=== PATIENT | male | born 1945 | race Caucasian/White ===

== ENCOUNTER 2016-05-01 10:57 | Outpatient (CLI) | payer MEDICARE, BC ==
[~2016-05-01 10:57] MED LIST: ACET325T53 PO; ATOR10TA PO; BLOO-129 IN; GABA300C PO; HYDR-3326 PO; Metformin Hcl PO; Nortriptyline Hcl PO; OXYC1TAB PO; TOBR2.5D EACHEYE; Valsartan PO; Zolpidem Tartrate PO; [UNRECOGNIZED DRUG - CODE] PO
== END 2016-05-01 23:59 | disposition home or self-care (01) ==
LOC: WOU 10:57
PROVIDERS: ATTEND Podiatrist Foot & Ankle Surgery
DX: E11.621 Type 2 diabetes mellitus with foot ulcer (principal); E11.42 Type 2 diabetes mellitus with diabetic polyneuropathy; L97.521 Non-pressure chronic ulcer of other part of left foot limited to breakdown of skin
CPT/HCPCS: A6402; G0463

== ENCOUNTER 2016-05-12 09:40 | Outpatient (CLI) | payer MEDICARE, BC | END 2016-05-12 23:59 | disposition home or self-care (01) | LOC: WOU 09:40 | PROVIDERS: ATTEND Podiatrist Foot & Ankle Surgery | DX: T87.81 Dehiscence of amputation stump (principal); E11.621 Type 2 diabetes mellitus with foot ulcer; L97.521 Non-pressure chronic ulcer of other part of left foot limited to breakdown of skin; E11.42 Type 2 diabetes mellitus with diabetic polyneuropathy; T86.821 Skin graft (allograft) (autograft) failure; Z91.19 Patient's noncompliance with other medical treatment and regimen; Z83.3 Family history of diabetes mellitus; Z89.422 Acquired absence of other left toe(s); Z79.84 Long term (current) use of oral hypoglycemic drugs | CPT/HCPCS: 11042; A6402 ==

== ENCOUNTER 2016-05-19 12:53 | Outpatient (CLI) | payer MEDICARE, BC ==
[~2016-05-19 12:53] MED LIST changes: +OXYC-128 PO; -OXYC1TAB PO
== END 2016-05-19 23:59 | disposition home or self-care (01) ==
LOC: WOU 12:53
PROVIDERS: ATTEND Podiatrist Foot & Ankle Surgery
DX: T87.81 Dehiscence of amputation stump (principal); Z89.422 Acquired absence of other left toe(s); E11.621 Type 2 diabetes mellitus with foot ulcer; L97.521 Non-pressure chronic ulcer of other part of left foot limited to breakdown of skin; E11.42 Type 2 diabetes mellitus with diabetic polyneuropathy; Z79.84 Long term (current) use of oral hypoglycemic drugs
CPT/HCPCS: 11042; A6402

== ENCOUNTER 2016-05-29 11:45 | Outpatient (CLI) | payer MEDICARE, BC | END 2016-05-29 23:59 | disposition home or self-care (01) | LOC: WOU 11:45 | PROVIDERS: ATTEND Podiatrist Foot & Ankle Surgery | DX: Z48.817 Encounter for surgical aftercare following surgery on the skin and subcutaneous tissue (principal); E11.621 Type 2 diabetes mellitus with foot ulcer; L97.521 Non-pressure chronic ulcer of other part of left foot limited to breakdown of skin; E11.42 Type 2 diabetes mellitus with diabetic polyneuropathy; Z89.422 Acquired absence of other left toe(s); T87.81 Dehiscence of amputation stump; Z79.84 Long term (current) use of oral hypoglycemic drugs | CPT/HCPCS: 11042; A6402 ==

== ENCOUNTER 2016-06-02 09:33 | Outpatient (CLI) | payer MEDICARE, BC | END 2016-06-02 23:59 | disposition home or self-care (01) | LOC: WOU 09:33 | PROVIDERS: ATTEND Podiatrist Foot & Ankle Surgery | DX: T87.81 Dehiscence of amputation stump (principal); E11.621 Type 2 diabetes mellitus with foot ulcer; L97.521 Non-pressure chronic ulcer of other part of left foot limited to breakdown of skin; E11.42 Type 2 diabetes mellitus with diabetic polyneuropathy; Z89.422 Acquired absence of other left toe(s); T86.821 Skin graft (allograft) (autograft) failure; Z91.19 Patient's noncompliance with other medical treatment and regimen; Z83.3 Family history of diabetes mellitus; Z79.84 Long term (current) use of oral hypoglycemic drugs | CPT/HCPCS: 11042; A6402 ==

== ENCOUNTER 2016-06-09 10:42 | Outpatient (CLI) | payer MEDICARE, BC | END 2016-06-09 23:59 | disposition home or self-care (01) | LOC: WOU 10:42 | PROVIDERS: ATTEND Podiatrist Foot & Ankle Surgery | DX: T87.81 Dehiscence of amputation stump (principal); E11.621 Type 2 diabetes mellitus with foot ulcer; L97.521 Non-pressure chronic ulcer of other part of left foot limited to breakdown of skin; E11.42 Type 2 diabetes mellitus with diabetic polyneuropathy; Z89.422 Acquired absence of other left toe(s); Z91.19 Patient's noncompliance with other medical treatment and regimen; Z83.3 Family history of diabetes mellitus; Z80.9 Family history of malignant neoplasm, unspecified; T86.821 Skin graft (allograft) (autograft) failure; Z79.84 Long term (current) use of oral hypoglycemic drugs | CPT/HCPCS: 11042; 88305; 88312; A6402 ×2 ==

== ENCOUNTER 2016-06-16 09:05 | Outpatient (CLI) | payer MEDICARE, BC | END 2016-06-16 23:59 | disposition home or self-care (01) | LOC: WOU 09:05 | PROVIDERS: ATTEND Podiatrist Foot & Ankle Surgery | DX: E11.621 Type 2 diabetes mellitus with foot ulcer (principal); L97.521 Non-pressure chronic ulcer of other part of left foot limited to breakdown of skin; E11.42 Type 2 diabetes mellitus with diabetic polyneuropathy; Z89.422 Acquired absence of other left toe(s); T87.81 Dehiscence of amputation stump; S80.811D Abrasion, right lower leg, subsequent encounter; X58.XXXD Exposure to other specified factors, subsequent encounter; Z91.19 Patient's noncompliance with other medical treatment and regimen | CPT/HCPCS: 11042; A6402 ==

== ENCOUNTER 2016-06-23 11:22 | Outpatient (CLI) | payer MEDICARE, BC | END 2016-06-23 23:59 | disposition home or self-care (01) | LOC: WOU 11:22 | PROVIDERS: ATTEND Podiatrist Foot & Ankle Surgery | DX: T87.81 Dehiscence of amputation stump (principal); T86.821 Skin graft (allograft) (autograft) failure; E11.621 Type 2 diabetes mellitus with foot ulcer; L97.521 Non-pressure chronic ulcer of other part of left foot limited to breakdown of skin; E11.42 Type 2 diabetes mellitus with diabetic polyneuropathy; Z89.422 Acquired absence of other left toe(s); S80.811D Abrasion, right lower leg, subsequent encounter; X58.XXXD Exposure to other specified factors, subsequent encounter; Z79.84 Long term (current) use of oral hypoglycemic drugs | CPT/HCPCS: 11042; A6197; A6253; A6402 ×2; A6452 ==

== ENCOUNTER 2016-06-26 11:09 | Outpatient (CLI) | payer MEDICARE, BC | END 2016-06-26 23:59 | disposition home or self-care (01) | LOC: WOU 11:09 | PROVIDERS: ATTEND Podiatrist Foot & Ankle Surgery | DX: T87.81 Dehiscence of amputation stump (principal); E11.621 Type 2 diabetes mellitus with foot ulcer; L97.521 Non-pressure chronic ulcer of other part of left foot limited to breakdown of skin; E11.42 Type 2 diabetes mellitus with diabetic polyneuropathy; S80.811D Abrasion, right lower leg, subsequent encounter; X58.XXXD Exposure to other specified factors, subsequent encounter; Z91.19 Patient's noncompliance with other medical treatment and regimen; Z89.422 Acquired absence of other left toe(s) | CPT/HCPCS: 11042; A6197; A6402 ==

== ENCOUNTER 2016-07-04 10:27 | Outpatient (CLI) | payer MEDICARE, BC | END 2016-07-04 23:59 | disposition home or self-care (01) | LOC: WOU 10:27 | PROVIDERS: ATTEND Podiatrist Foot & Ankle Surgery | DX: T87.81 Dehiscence of amputation stump (principal); E11.621 Type 2 diabetes mellitus with foot ulcer; L97.523 Non-pressure chronic ulcer of other part of left foot with necrosis of muscle; E11.42 Type 2 diabetes mellitus with diabetic polyneuropathy; Z89.422 Acquired absence of other left toe(s); T86.821 Skin graft (allograft) (autograft) failure | CPT/HCPCS: 11043; 87070-TC; 97605-TC; A6402 ==

== ENCOUNTER 2016-07-07 09:25 | Outpatient (CLI) | payer MEDICARE, BC | END 2016-07-07 23:59 | disposition home health service (06) | LOC: WOU 09:25 | PROVIDERS: ATTEND Podiatrist Foot & Ankle Surgery | DX: T87.81 Dehiscence of amputation stump (principal); T86.821 Skin graft (allograft) (autograft) failure; E11.621 Type 2 diabetes mellitus with foot ulcer; L97.523 Non-pressure chronic ulcer of other part of left foot with necrosis of muscle; E11.42 Type 2 diabetes mellitus with diabetic polyneuropathy; Z91.19 Patient's noncompliance with other medical treatment and regimen; Z79.84 Long term (current) use of oral hypoglycemic drugs | CPT/HCPCS: 11043; A6402 ==

== ENCOUNTER 2016-07-10 09:50 | Outpatient (CLI) | payer MEDICARE, BC | END 2016-07-10 23:59 | disposition home health service (06) | LOC: WOU 09:50 | PROVIDERS: ATTEND Podiatrist Foot & Ankle Surgery | DX: T87.81 Dehiscence of amputation stump (principal); E11.621 Type 2 diabetes mellitus with foot ulcer; E11.42 Type 2 diabetes mellitus with diabetic polyneuropathy; Z89.432 Acquired absence of left foot; Z79.84 Long term (current) use of oral hypoglycemic drugs; Z91.19 Patient's noncompliance with other medical treatment and regimen; B35.1 Tinea unguium; L97.522 Non-pressure chronic ulcer of other part of left foot with fat layer exposed | CPT/HCPCS: 11042; A6402 ==

== ENCOUNTER 2016-07-17 10:20 | Outpatient (CLI) | payer MEDICARE, BC | END 2016-07-17 23:59 | disposition home health service (06) | LOC: WOU 10:20 | PROVIDERS: ATTEND Podiatrist Foot & Ankle Surgery | DX: T87.81 Dehiscence of amputation stump (principal); E11.621 Type 2 diabetes mellitus with foot ulcer; L97.523 Non-pressure chronic ulcer of other part of left foot with necrosis of muscle; E11.42 Type 2 diabetes mellitus with diabetic polyneuropathy; Z89.422 Acquired absence of other left toe(s); Z83.3 Family history of diabetes mellitus; Z80.9 Family history of malignant neoplasm, unspecified | CPT/HCPCS: 11042; A6402 ==

== ENCOUNTER 2016-07-28 10:29 | Outpatient (CLI) | payer MEDICARE, BC | END 2016-07-28 23:59 | disposition home health service (06) | LOC: WOU 10:29 | PROVIDERS: ATTEND Podiatrist Foot & Ankle Surgery | DX: E11.621 Type 2 diabetes mellitus with foot ulcer (principal); L97.522 Non-pressure chronic ulcer of other part of left foot with fat layer exposed; E11.42 Type 2 diabetes mellitus with diabetic polyneuropathy; T87.81 Dehiscence of amputation stump; Z89.422 Acquired absence of other left toe(s); Z91.19 Patient's noncompliance with other medical treatment and regimen | CPT/HCPCS: 11042; A6402 ×2 ==

== ENCOUNTER 2016-08-04 14:00 | Outpatient (CLI) | payer MEDICARE, BC | END 2016-08-04 23:59 | disposition home health service (06) | LOC: WOU 14:00 | PROVIDERS: ATTEND Podiatrist Foot & Ankle Surgery | DX: T87.81 Dehiscence of amputation stump (principal); Z89.422 Acquired absence of other left toe(s); T86.821 Skin graft (allograft) (autograft) failure; E11.621 Type 2 diabetes mellitus with foot ulcer; L97.522 Non-pressure chronic ulcer of other part of left foot with fat layer exposed; E11.42 Type 2 diabetes mellitus with diabetic polyneuropathy; Z91.19 Patient's noncompliance with other medical treatment and regimen; Z79.84 Long term (current) use of oral hypoglycemic drugs | CPT/HCPCS: 11042; A6402 ==

== ENCOUNTER 2016-08-07 09:31 | Outpatient (CLI) | payer MEDICARE, BC | END 2016-08-07 23:59 | disposition home health service (06) | LOC: WOU 09:31 | PROVIDERS: ATTEND Podiatrist Foot & Ankle Surgery | DX: E11.621 Type 2 diabetes mellitus with foot ulcer (principal); L97.522 Non-pressure chronic ulcer of other part of left foot with fat layer exposed; T87.81 Dehiscence of amputation stump; T86.821 Skin graft (allograft) (autograft) failure; Z89.422 Acquired absence of other left toe(s); E11.42 Type 2 diabetes mellitus with diabetic polyneuropathy; Z91.19 Patient's noncompliance with other medical treatment and regimen | CPT/HCPCS: 11042; A6402 ==

== ENCOUNTER 2016-08-14 09:38 | Outpatient (CLI) | payer MEDICARE, BC | END 2016-08-14 23:59 | disposition home health service (06) | LOC: WOU 09:38 | PROVIDERS: ATTEND Podiatrist Foot & Ankle Surgery | DX: T87.81 Dehiscence of amputation stump (principal); Z89.422 Acquired absence of other left toe(s); E11.621 Type 2 diabetes mellitus with foot ulcer; E11.42 Type 2 diabetes mellitus with diabetic polyneuropathy; Z91.19 Patient's noncompliance with other medical treatment and regimen; T86.821 Skin graft (allograft) (autograft) failure; Z83.3 Family history of diabetes mellitus; Z79.84 Long term (current) use of oral hypoglycemic drugs | CPT/HCPCS: 11042; 82962-TC; A6402 ==

== ENCOUNTER 2016-08-21 09:59 | Outpatient (CLI) | payer MEDICARE, BC | END 2016-08-21 23:59 | disposition home health service (06) | LOC: WOU 09:59 | PROVIDERS: ATTEND Podiatrist Foot & Ankle Surgery | DX: E11.621 Type 2 diabetes mellitus with foot ulcer (principal); L97.521 Non-pressure chronic ulcer of other part of left foot limited to breakdown of skin; T87.81 Dehiscence of amputation stump; T86.821 Skin graft (allograft) (autograft) failure; E11.42 Type 2 diabetes mellitus with diabetic polyneuropathy; Z89.422 Acquired absence of other left toe(s); Z79.84 Long term (current) use of oral hypoglycemic drugs | CPT/HCPCS: 11042; 82962; A6402 ==

== ENCOUNTER 2016-08-28 13:10 | Outpatient (CLI) | payer MEDICARE, BC | END 2016-08-28 23:59 | disposition home health service (06) | LOC: WOU 13:10 | PROVIDERS: ATTEND Podiatrist Foot & Ankle Surgery | DX: E11.621 Type 2 diabetes mellitus with foot ulcer (principal); L97.521 Non-pressure chronic ulcer of other part of left foot limited to breakdown of skin; T87.81 Dehiscence of amputation stump; Z89.422 Acquired absence of other left toe(s); E11.42 Type 2 diabetes mellitus with diabetic polyneuropathy; E66.3 Overweight; Z68.28 Body mass index [BMI] 28.0-28.9, adult | CPT/HCPCS: 11042; A6402 ==

== ENCOUNTER 2016-09-15 10:00 | Outpatient (CLI) | payer MEDICARE, BC | END 2016-09-15 23:59 | disposition home health service (06) | LOC: WOU 10:00 | PROVIDERS: ATTEND Podiatrist Foot & Ankle Surgery | DX: T87.81 Dehiscence of amputation stump (principal); E11.621 Type 2 diabetes mellitus with foot ulcer; L97.521 Non-pressure chronic ulcer of other part of left foot limited to breakdown of skin; Z89.422 Acquired absence of other left toe(s); T86.821 Skin graft (allograft) (autograft) failure; Z91.19 Patient's noncompliance with other medical treatment and regimen; Z79.84 Long term (current) use of oral hypoglycemic drugs | CPT/HCPCS: 11042; A6402 ==

== ENCOUNTER 2016-09-29 09:49 | Outpatient (CLI) | payer MEDICARE, BC | END 2016-09-29 23:59 | disposition home health service (06) | LOC: WOU 09:49 | PROVIDERS: ATTEND Podiatrist Foot & Ankle Surgery | DX: T86.821 Skin graft (allograft) (autograft) failure (principal); T87.81 Dehiscence of amputation stump; E11.621 Type 2 diabetes mellitus with foot ulcer; L97.521 Non-pressure chronic ulcer of other part of left foot limited to breakdown of skin; Z89.422 Acquired absence of other left toe(s); E11.42 Type 2 diabetes mellitus with diabetic polyneuropathy; Z79.84 Long term (current) use of oral hypoglycemic drugs; E66.3 Overweight; Z68.28 Body mass index [BMI] 28.0-28.9, adult; Z91.19 Patient's noncompliance with other medical treatment and regimen | CPT/HCPCS: 11042; A6402 ==

== ENCOUNTER 2016-10-09 10:15 | Outpatient (CLI) | payer MEDICARE, BC | END 2016-10-09 23:59 | disposition home health service (06) | LOC: WOU 10:15 | PROVIDERS: ATTEND Podiatrist Foot & Ankle Surgery | DX: T87.81 Dehiscence of amputation stump (principal); T86.821 Skin graft (allograft) (autograft) failure; E11.621 Type 2 diabetes mellitus with foot ulcer; L97.521 Non-pressure chronic ulcer of other part of left foot limited to breakdown of skin; Z89.422 Acquired absence of other left toe(s); E11.42 Type 2 diabetes mellitus with diabetic polyneuropathy; Z91.19 Patient's noncompliance with other medical treatment and regimen; Z79.84 Long term (current) use of oral hypoglycemic drugs | CPT/HCPCS: 11042; A6402 ==

== ENCOUNTER 2016-10-23 10:06 | Outpatient (CLI) | payer MEDICARE, BC | END 2016-10-23 23:59 | disposition home health service (06) | LOC: WOU 10:06 | PROVIDERS: ATTEND Podiatrist Foot & Ankle Surgery | DX: T87.81 Dehiscence of amputation stump (principal); E11.621 Type 2 diabetes mellitus with foot ulcer; L97.521 Non-pressure chronic ulcer of other part of left foot limited to breakdown of skin; Z89.422 Acquired absence of other left toe(s); E11.42 Type 2 diabetes mellitus with diabetic polyneuropathy; Z91.19 Patient's noncompliance with other medical treatment and regimen; T86.821 Skin graft (allograft) (autograft) failure | CPT/HCPCS: 11042; A6402 ==

== ENCOUNTER 2016-11-10 10:26 | Outpatient (CLI) | payer MEDICARE, BC | END 2016-11-10 23:59 | disposition home health service (06) | LOC: WOU 10:26 | PROVIDERS: ATTEND Podiatrist Foot & Ankle Surgery | DX: T87.81 Dehiscence of amputation stump (principal); E11.621 Type 2 diabetes mellitus with foot ulcer; L97.521 Non-pressure chronic ulcer of other part of left foot limited to breakdown of skin; E11.42 Type 2 diabetes mellitus with diabetic polyneuropathy; T86.821 Skin graft (allograft) (autograft) failure; Z89.422 Acquired absence of other left toe(s); Z83.3 Family history of diabetes mellitus; Z79.84 Long term (current) use of oral hypoglycemic drugs | CPT/HCPCS: 11042; 82962-TC; A6402 ==

== ENCOUNTER 2016-11-24 10:30 | Outpatient (CLI) | payer MEDICARE, BC | END 2016-11-24 23:59 | disposition home health service (06) | LOC: WOU 10:30 | PROVIDERS: ATTEND Podiatrist Foot & Ankle Surgery | DX: T87.81 Dehiscence of amputation stump (principal); E11.621 Type 2 diabetes mellitus with foot ulcer; L97.521 Non-pressure chronic ulcer of other part of left foot limited to breakdown of skin; E11.42 Type 2 diabetes mellitus with diabetic polyneuropathy; T86.821 Skin graft (allograft) (autograft) failure; Z89.422 Acquired absence of other left toe(s); Z83.3 Family history of diabetes mellitus; Z79.84 Long term (current) use of oral hypoglycemic drugs; Z91.19 Patient's noncompliance with other medical treatment and regimen | CPT/HCPCS: 11042; 82962-TC; A6402 ==

== ENCOUNTER 2016-12-08 11:40 | Outpatient (CLI) | payer MEDICARE, BC | END 2016-12-08 23:59 | disposition home health service (06) | LOC: WOU 11:40 | PROVIDERS: ATTEND Podiatrist Foot & Ankle Surgery | DX: T87.81 Dehiscence of amputation stump (principal); T86.821 Skin graft (allograft) (autograft) failure; E11.621 Type 2 diabetes mellitus with foot ulcer; E11.42 Type 2 diabetes mellitus with diabetic polyneuropathy; Z89.422 Acquired absence of other left toe(s); L97.522 Non-pressure chronic ulcer of other part of left foot with fat layer exposed; Z91.19 Patient's noncompliance with other medical treatment and regimen; Z79.84 Long term (current) use of oral hypoglycemic drugs; Z79.899 Other long term (current) drug therapy | CPT/HCPCS: 11042; A6402 ==

== ENCOUNTER 2016-12-15 10:58 | Outpatient (CLI) | payer MEDICARE, BC | END 2016-12-15 23:59 | disposition home health service (06) | LOC: WOU 10:58 | PROVIDERS: ATTEND Podiatrist Foot & Ankle Surgery | DX: T87.81 Dehiscence of amputation stump (principal); T86.821 Skin graft (allograft) (autograft) failure; L97.522 Non-pressure chronic ulcer of other part of left foot with fat layer exposed; E11.621 Type 2 diabetes mellitus with foot ulcer; E11.42 Type 2 diabetes mellitus with diabetic polyneuropathy; Z79.84 Long term (current) use of oral hypoglycemic drugs | CPT/HCPCS: 11042; A6402 ==

== ENCOUNTER 2016-12-22 10:55 | Outpatient (CLI) | payer MEDICARE, BC | END 2016-12-22 23:59 | disposition home health service (06) | LOC: WOU 10:55 | PROVIDERS: ATTEND Podiatrist Foot & Ankle Surgery | DX: T87.81 Dehiscence of amputation stump (principal); E11.621 Type 2 diabetes mellitus with foot ulcer; T86.821 Skin graft (allograft) (autograft) failure; L97.522 Non-pressure chronic ulcer of other part of left foot with fat layer exposed; Z89.422 Acquired absence of other left toe(s); E11.42 Type 2 diabetes mellitus with diabetic polyneuropathy; Z79.84 Long term (current) use of oral hypoglycemic drugs | CPT/HCPCS: 11042 ==

== ENCOUNTER 2017-01-05 11:16 | Outpatient (CLI) | payer MEDICARE, BC | END 2017-01-05 23:59 | disposition home health service (06) | LOC: WOU 11:16 | PROVIDERS: ATTEND Podiatrist Foot & Ankle Surgery | DX: E11.621 Type 2 diabetes mellitus with foot ulcer (principal); L97.522 Non-pressure chronic ulcer of other part of left foot with fat layer exposed; T87.81 Dehiscence of amputation stump; E11.42 Type 2 diabetes mellitus with diabetic polyneuropathy; Z89.422 Acquired absence of other left toe(s) | CPT/HCPCS: 11042; A6402 ==

== ENCOUNTER 2017-01-19 12:10 | Outpatient (CLI) | payer MEDICARE, BC | END 2017-01-19 23:59 | disposition home or self-care (01) | LOC: WOU 12:10 | PROVIDERS: ATTEND Podiatrist Foot & Ankle Surgery | DX: T87.81 Dehiscence of amputation stump (principal); E11.621 Type 2 diabetes mellitus with foot ulcer; E11.42 Type 2 diabetes mellitus with diabetic polyneuropathy; L60.3 Nail dystrophy; Z79.84 Long term (current) use of oral hypoglycemic drugs; L97.522 Non-pressure chronic ulcer of other part of left foot with fat layer exposed; Z89.422 Acquired absence of other left toe(s) | CPT/HCPCS: 11042; 88305-TC; 88312-TC; A6402 ==

== ENCOUNTER 2017-01-22 10:10 | Outpatient (CLI) | payer MEDICARE, BC | END 2017-01-22 23:59 | disposition home or self-care (01) | LOC: WOU 10:10 | PROVIDERS: ATTEND Podiatrist Foot & Ankle Surgery | DX: T87.81 Dehiscence of amputation stump (principal); E11.621 Type 2 diabetes mellitus with foot ulcer; L97.522 Non-pressure chronic ulcer of other part of left foot with fat layer exposed; E11.42 Type 2 diabetes mellitus with diabetic polyneuropathy; T86.821 Skin graft (allograft) (autograft) failure; Z89.422 Acquired absence of other left toe(s); Z79.84 Long term (current) use of oral hypoglycemic drugs | CPT/HCPCS: 11042; A6402 ==

== ENCOUNTER 2017-01-29 09:20 | Outpatient (CLI) | payer MEDICARE, BC | END 2017-01-29 23:59 | disposition home health service (06) | LOC: WOU 09:20 | PROVIDERS: ATTEND Podiatrist Foot & Ankle Surgery | DX: E11.621 Type 2 diabetes mellitus with foot ulcer (principal); L97.522 Non-pressure chronic ulcer of other part of left foot with fat layer exposed; E11.42 Type 2 diabetes mellitus with diabetic polyneuropathy; T87.81 Dehiscence of amputation stump; Z89.422 Acquired absence of other left toe(s); T86.821 Skin graft (allograft) (autograft) failure | CPT/HCPCS: 11042; A6402 ==

== ENCOUNTER 2017-02-02 11:01 | Outpatient (CLI) | payer MEDICARE, BC | END 2017-02-02 23:59 | disposition home health service (06) | LOC: WOU 11:01 | PROVIDERS: ATTEND Podiatrist Foot & Ankle Surgery | DX: E11.621 Type 2 diabetes mellitus with foot ulcer (principal); L97.522 Non-pressure chronic ulcer of other part of left foot with fat layer exposed; E11.42 Type 2 diabetes mellitus with diabetic polyneuropathy; T87.81 Dehiscence of amputation stump; Z89.422 Acquired absence of other left toe(s); T86.821 Skin graft (allograft) (autograft) failure | CPT/HCPCS: 11042; A6402 ==

== ENCOUNTER 2017-02-05 10:30 | Outpatient (CLI) | payer MEDICARE, BC | END 2017-02-05 23:59 | disposition home health service (06) | LOC: WOU 10:30 | PROVIDERS: ATTEND Podiatrist Foot & Ankle Surgery | DX: T87.81 Dehiscence of amputation stump (principal); E11.621 Type 2 diabetes mellitus with foot ulcer; L97.522 Non-pressure chronic ulcer of other part of left foot with fat layer exposed; E11.42 Type 2 diabetes mellitus with diabetic polyneuropathy; Z89.422 Acquired absence of other left toe(s); S90.811A Abrasion, right foot, initial encounter; X58.XXXA Exposure to other specified factors, initial encounter; Y92.89 Other specified places as the place of occurrence of the external cause; R23.4 Changes in skin texture | CPT/HCPCS: 11042; A6209; A6402 ×2 ==

== ENCOUNTER 2017-02-09 09:40 | Outpatient (CLI) | payer MEDICARE, BC | END 2017-02-09 23:59 | disposition home health service (06) | LOC: WOU 09:40 | PROVIDERS: ATTEND Podiatrist Foot & Ankle Surgery | DX: T87.81 Dehiscence of amputation stump (principal); S90.511D Abrasion, right ankle, subsequent encounter; W26.8XXD Contact with other sharp object(s), not elsewhere classified, subsequent encounter; Z89.422 Acquired absence of other left toe(s); E11.42 Type 2 diabetes mellitus with diabetic polyneuropathy; Z79.84 Long term (current) use of oral hypoglycemic drugs | CPT/HCPCS: A6209; A6402; G0463 ==

== ENCOUNTER 2017-02-16 11:17 | Outpatient (CLI) | payer MEDICARE, BC | END 2017-02-16 23:59 | disposition home health service (06) | LOC: WOU 11:17 | PROVIDERS: ATTEND Podiatrist Foot & Ankle Surgery | DX: E11.621 Type 2 diabetes mellitus with foot ulcer (principal); L97.522 Non-pressure chronic ulcer of other part of left foot with fat layer exposed; E11.42 Type 2 diabetes mellitus with diabetic polyneuropathy; T87.81 Dehiscence of amputation stump; Z89.422 Acquired absence of other left toe(s); L97.311 Non-pressure chronic ulcer of right ankle limited to breakdown of skin; Z79.84 Long term (current) use of oral hypoglycemic drugs | CPT/HCPCS: 11042; A6209; A6402 ==

== ENCOUNTER 2017-02-19 10:00 | Outpatient (CLI) | payer MEDICARE, BC | END 2017-02-19 23:59 | disposition home health service (06) | LOC: WOU 10:00 | PROVIDERS: ATTEND Podiatrist Foot & Ankle Surgery | DX: T87.81 Dehiscence of amputation stump (principal); E11.621 Type 2 diabetes mellitus with foot ulcer; L97.521 Non-pressure chronic ulcer of other part of left foot limited to breakdown of skin; E11.42 Type 2 diabetes mellitus with diabetic polyneuropathy; Z89.422 Acquired absence of other left toe(s); L97.311 Non-pressure chronic ulcer of right ankle limited to breakdown of skin; Z79.84 Long term (current) use of oral hypoglycemic drugs | CPT/HCPCS: 11042; A6209 ×2; A6402 ==

== ENCOUNTER 2017-02-26 11:15 | Outpatient (CLI) | payer MEDICARE, BC | END 2017-02-26 23:59 | disposition home health service (06) | LOC: WOU 11:15 | PROVIDERS: ATTEND Podiatrist Foot & Ankle Surgery | DX: E11.42 Type 2 diabetes mellitus with diabetic polyneuropathy (principal); Z89.422 Acquired absence of other left toe(s); S91.001A Unspecified open wound, right ankle, initial encounter; X58.XXXA Exposure to other specified factors, initial encounter; Y92.89 Other specified places as the place of occurrence of the external cause; R23.4 Changes in skin texture; T81.31XA Disruption of external operation (surgical) wound, not elsewhere classified, initial encounter; Z79.84 Long term (current) use of oral hypoglycemic drugs | CPT/HCPCS: 11042; A6209 ×2; A6402 ==

== ENCOUNTER 2017-03-05 11:45 | Outpatient (CLI) | payer MEDICARE, BC | END 2017-03-05 23:59 | disposition home health service (06) | LOC: WOU 11:45 | PROVIDERS: ATTEND Podiatrist Foot & Ankle Surgery | DX: T87.81 Dehiscence of amputation stump (principal); E11.621 Type 2 diabetes mellitus with foot ulcer; L97.522 Non-pressure chronic ulcer of other part of left foot with fat layer exposed; L97.312 Non-pressure chronic ulcer of right ankle with fat layer exposed; E11.622 Type 2 diabetes mellitus with other skin ulcer; Z89.422 Acquired absence of other left toe(s); E11.42 Type 2 diabetes mellitus with diabetic polyneuropathy; Z79.84 Long term (current) use of oral hypoglycemic drugs | CPT/HCPCS: 11042; A6209; A6402 ==

== ENCOUNTER 2017-03-09 10:40 | Outpatient (CLI) | payer MEDICARE, BC | END 2017-03-09 23:59 | disposition home health service (06) | LOC: WOU 10:40 | PROVIDERS: ATTEND Podiatrist Foot & Ankle Surgery | DX: T87.81 Dehiscence of amputation stump (principal); E11.621 Type 2 diabetes mellitus with foot ulcer; L97.522 Non-pressure chronic ulcer of other part of left foot with fat layer exposed; E11.42 Type 2 diabetes mellitus with diabetic polyneuropathy; Z89.422 Acquired absence of other left toe(s); Z79.84 Long term (current) use of oral hypoglycemic drugs | CPT/HCPCS: 11042; A6209; A6402 ==

== ENCOUNTER 2017-03-12 11:30 | Outpatient (CLI) | payer MEDICARE, BC | END 2017-03-12 23:59 | disposition home health service (06) | LOC: WOU 11:30 | PROVIDERS: ATTEND Podiatrist Foot & Ankle Surgery | DX: E11.621 Type 2 diabetes mellitus with foot ulcer (principal); L97.522 Non-pressure chronic ulcer of other part of left foot with fat layer exposed; T87.81 Dehiscence of amputation stump; T81.31XA Disruption of external operation (surgical) wound, not elsewhere classified, initial encounter; L97.312 Non-pressure chronic ulcer of right ankle with fat layer exposed; Z89.422 Acquired absence of other left toe(s); E11.42 Type 2 diabetes mellitus with diabetic polyneuropathy; Z79.84 Long term (current) use of oral hypoglycemic drugs | CPT/HCPCS: 11042; A6209; A6402 ×2 ==

== ENCOUNTER 2017-03-16 12:50 | Outpatient (CLI) | payer MEDICARE, BC | END 2017-03-16 23:59 | disposition home or self-care (01) | LOC: WOU 12:50 | PROVIDERS: ATTEND Surgery | DX: H02.34 Blepharochalasis left upper eyelid (principal); H02.31 Blepharochalasis right upper eyelid; E11.42 Type 2 diabetes mellitus with diabetic polyneuropathy; E11.621 Type 2 diabetes mellitus with foot ulcer; L97.522 Non-pressure chronic ulcer of other part of left foot with fat layer exposed; T81.31XD Disruption of external operation (surgical) wound, not elsewhere classified, subsequent encounter; L97.312 Non-pressure chronic ulcer of right ankle with fat layer exposed; Z89.422 Acquired absence of other left toe(s) | CPT/HCPCS: G0463 ==

== ENCOUNTER 2017-03-30 11:20 | Outpatient (CLI) | payer MEDICARE, BC | END 2017-03-30 23:59 | disposition home health service (06) | LOC: WOU 11:20 | PROVIDERS: ATTEND Podiatrist Foot & Ankle Surgery | DX: E11.621 Type 2 diabetes mellitus with foot ulcer (principal); L97.522 Non-pressure chronic ulcer of other part of left foot with fat layer exposed; T87.81 Dehiscence of amputation stump; E11.622 Type 2 diabetes mellitus with other skin ulcer; L97.312 Non-pressure chronic ulcer of right ankle with fat layer exposed; E11.42 Type 2 diabetes mellitus with diabetic polyneuropathy; Z89.422 Acquired absence of other left toe(s); Z79.84 Long term (current) use of oral hypoglycemic drugs | CPT/HCPCS: 11042; A6209; A6402 ==

== ENCOUNTER 2017-03-31 13:29 | Outpatient (CLI) | payer MEDICARE, BC ==
[2017-03-31 14:05] LABS: BASOPHILS % (AUTO) 0.3 % (0.0-2.0); EOSINOPHILS # (AUTO) 0.2 /CMM (0.0-0.7); EOSINOPHILS % (AUTO) 2.6 % (0.0-6.0); HEMATOCRIT 51 % (39-51); LYMPHOCYTES # (AUTO) 2.2 /CMM (0.8-4.8); LYMPHOCYTES % (AUTO) 25.9 % (20.0-44.0); MEAN CORPUSCULAR HEMOGLOBIN 28 PG (26.0-33.0); MEAN CORPUSCULAR HGB CONC 33 g/dl (31.0-36.0); MEAN CORPUSCULAR VOLUME 83 fL (80-96); MONOCYTES # (AUTO) 0.7 /CMM (0.1-1.30); NEUTROPHILS # (AUTO) 5.4 /CMM (1.8-8.9); NEUTROPHILS % (AUTO) 63.2 % (43.0-81.0); PLATELET COUNT (AUTO) 185 /CMM (150-450); RDW COEFFICIENT OF VARIATION 13.1 (11.5-15.0); RED BLOOD CELL COUNT(AUTO) 6.17 MIL/uL (4.5-6.0); WHITE BLOOD COUNT (AUTO) 8.6 K/uL (4.3-11.0)
[2017-03-31 14:16] LABS: CALCIUM, SERUM 8.9 mg/dL (8.5-10.1); CARBON DIOXIDE 26 mmol/L (21-32); CHLORIDE 101 mmol/L (98-107); GLUCOSE 119 mg/dL (74-106); POTASSIUM 3.9 mmol/L (3.5-5.1); SODIUM SERUM 137 mmol/L (136-145); UREA NITROGEN, BLOOD 16 mg/dL (7-18)
[2017-03-31 14:23] LABS: INR 0.94 (0.87-1.13); PROTHROMBIN TIME 9.8 SECS (9.5-12.7)
== END 2017-03-31 23:59 | disposition home or self-care (01) ==
LOC: LAB 13:29
PROVIDERS: ATTEND Surgery
DX: R05 Cough (principal); R00.2 Palpitations; R94.31 Abnormal electrocardiogram [ECG] [EKG]; T81.89XD Other complications of procedures, not elsewhere classified, subsequent encounter; R79.89 Other specified abnormal findings of blood chemistry
CPT/HCPCS: 36415; 71020-TC; 80048-TC; 85025-TC; 85730-TC

== ENCOUNTER 2017-04-02 12:45 | Outpatient (CLI) | payer MEDICARE, BC | END 2017-04-02 23:59 | disposition home or self-care (01) | LOC: WOU 12:45 | PROVIDERS: ATTEND Surgery | DX: Z01.818 Encounter for other preprocedural examination (principal); H02.30 Blepharochalasis unspecified eye, unspecified eyelid; E66.9 Obesity, unspecified; Z68.28 Body mass index [BMI] 28.0-28.9, adult; E11.621 Type 2 diabetes mellitus with foot ulcer; L97.522 Non-pressure chronic ulcer of other part of left foot with fat layer exposed; E11.42 Type 2 diabetes mellitus with diabetic polyneuropathy; Z89.422 Acquired absence of other left toe(s) | CPT/HCPCS: G0463 ==

== ENCOUNTER → 2017-04-09 | Day surgery (SDC) | payer MEDICARE, BC ==
[~2017-04-09] MED LIST changes: +ANESTHESIA TRAY IN PYXIS 1 EA TRAY MC ONE; +BUPIVACAINE 0.5 % PF 150 MG/30 ML VIAL ONE; +FENTANYL PF 100MCG/2ML AMPUL ONE; +MIDAZOLAM HCL 2 MG/2ML VIAL ONE
== END | disposition home or self-care (01) ==
LOC: DS 08:55
PROVIDERS: ATTEND Surgery
DX: H02.31 Blepharochalasis right upper eyelid (principal); H02.34 Blepharochalasis left upper eyelid; E11.42 Type 2 diabetes mellitus with diabetic polyneuropathy; E66.3 Overweight; Z98.890 Other specified postprocedural states; E11.69 Type 2 diabetes mellitus with other specified complication; M86.9 Osteomyelitis, unspecified; Z89.412 Acquired absence of left great toe
CPT/HCPCS: 15822; 82962; 88304; 88305; A6402; J2250; J2704; J3010; J3490

== ENCOUNTER 2017-04-13 09:30 | Outpatient (CLI) | payer MEDICARE, BC ==
[~2017-04-13 09:30] MED LIST changes: -ANESTHESIA TRAY IN PYXIS 1 EA TRAY MC ONE; -BUPIVACAINE 0.5 % PF 150 MG/30 ML VIAL ONE; -FENTANYL PF 100MCG/2ML AMPUL ONE; -MIDAZOLAM HCL 2 MG/2ML VIAL ONE
== END 2017-04-13 23:59 | disposition home or self-care (01) ==
LOC: WOU 09:30
PROVIDERS: ATTEND Surgery
DX: Z48.817 Encounter for surgical aftercare following surgery on the skin and subcutaneous tissue (principal); H02.34 Blepharochalasis left upper eyelid; H02.31 Blepharochalasis right upper eyelid
CPT/HCPCS: A6402; G0463

== ENCOUNTER 2017-04-15 13:00 | Outpatient (CLI) | payer MEDICARE, BC | END 2017-04-15 23:59 | disposition home health service (06) | LOC: WOU 13:00 | PROVIDERS: ATTEND Podiatrist Foot & Ankle Surgery | DX: T87.81 Dehiscence of amputation stump (principal); E11.621 Type 2 diabetes mellitus with foot ulcer; L97.522 Non-pressure chronic ulcer of other part of left foot with fat layer exposed; E11.622 Type 2 diabetes mellitus with other skin ulcer; L97.312 Non-pressure chronic ulcer of right ankle with fat layer exposed; Z89.422 Acquired absence of other left toe(s); E11.42 Type 2 diabetes mellitus with diabetic polyneuropathy; Z79.84 Long term (current) use of oral hypoglycemic drugs | CPT/HCPCS: 11042; A6209; A6402 ==

== ENCOUNTER 2017-04-16 13:31 | Outpatient (CLI) | payer MEDICARE, BC | END 2017-04-16 23:59 | disposition home or self-care (01) | LOC: WOU 13:31 | PROVIDERS: ATTEND Surgery | DX: Z48.02 Encounter for removal of sutures (principal); E11.621 Type 2 diabetes mellitus with foot ulcer; L97.522 Non-pressure chronic ulcer of other part of left foot with fat layer exposed; H53.453 Other localized visual field defect, bilateral; E11.42 Type 2 diabetes mellitus with diabetic polyneuropathy | CPT/HCPCS: A6209; A6402; G0463 ==

== ENCOUNTER 2017-04-22 13:40 | Outpatient (CLI) | payer MEDICARE, BC | END 2017-04-22 23:59 | disposition home health service (06) | LOC: WOU 13:40 | PROVIDERS: ATTEND Podiatrist Foot & Ankle Surgery | DX: E11.621 Type 2 diabetes mellitus with foot ulcer (principal); L97.522 Non-pressure chronic ulcer of other part of left foot with fat layer exposed; T87.81 Dehiscence of amputation stump; Z89.422 Acquired absence of other left toe(s); E11.42 Type 2 diabetes mellitus with diabetic polyneuropathy; L97.312 Non-pressure chronic ulcer of right ankle with fat layer exposed; Z79.84 Long term (current) use of oral hypoglycemic drugs | CPT/HCPCS: 11042; A6402 ==

== ENCOUNTER 2017-04-29 13:40 | Outpatient (CLI) | payer MEDICARE, BC | END 2017-04-29 23:59 | disposition home or self-care (01) | LOC: WOU 13:40 | PROVIDERS: ATTEND Podiatrist Foot & Ankle Surgery | DX: E11.622 Type 2 diabetes mellitus with other skin ulcer (principal); L97.312 Non-pressure chronic ulcer of right ankle with fat layer exposed; E11.42 Type 2 diabetes mellitus with diabetic polyneuropathy; L60.3 Nail dystrophy; Z89.422 Acquired absence of other left toe(s) | CPT/HCPCS: 29445; A6402 ==

== ENCOUNTER 2017-05-06 10:30 | Outpatient (CLI) | payer MEDICARE, BC | END 2017-05-06 23:59 | disposition home health service (06) | LOC: WOU 10:30 | PROVIDERS: ATTEND Podiatrist Foot & Ankle Surgery | DX: E11.621 Type 2 diabetes mellitus with foot ulcer (principal); L97.312 Non-pressure chronic ulcer of right ankle with fat layer exposed; E11.42 Type 2 diabetes mellitus with diabetic polyneuropathy; Z89.422 Acquired absence of other left toe(s); L60.3 Nail dystrophy | CPT/HCPCS: A6402; G0463 ==

== ENCOUNTER 2017-05-18 10:00 | Outpatient (CLI) | payer MEDICARE, BC | END 2017-05-18 23:59 | disposition home health service (06) | LOC: WOU 10:00 | PROVIDERS: ATTEND Podiatrist Foot & Ankle Surgery | DX: T87.81 Dehiscence of amputation stump (principal); E11.621 Type 2 diabetes mellitus with foot ulcer; L97.522 Non-pressure chronic ulcer of other part of left foot with fat layer exposed; E11.622 Type 2 diabetes mellitus with other skin ulcer; L97.312 Non-pressure chronic ulcer of right ankle with fat layer exposed; E11.42 Type 2 diabetes mellitus with diabetic polyneuropathy; Z89.422 Acquired absence of other left toe(s); Z83.3 Family history of diabetes mellitus; Z79.84 Long term (current) use of oral hypoglycemic drugs | CPT/HCPCS: 11042; A6253; A6402 ==

== ENCOUNTER → 2017-05-21 | Outpatient (CLI) | payer MEDICARE, BC | END | disposition home health service (06) | LOC: WOU 11:45 | PROVIDERS: ATTEND Podiatrist Foot & Ankle Surgery | DX: E11.621 Type 2 diabetes mellitus with foot ulcer (principal); L97.522 Non-pressure chronic ulcer of other part of left foot with fat layer exposed; E11.622 Type 2 diabetes mellitus with other skin ulcer; L97.318 Non-pressure chronic ulcer of right ankle with other specified severity; E11.42 Type 2 diabetes mellitus with diabetic polyneuropathy; Z89.422 Acquired absence of other left toe(s); E66.3 Overweight; Z68.28 Body mass index [BMI] 28.0-28.9, adult; Z71.3 Dietary counseling and surveillance | CPT/HCPCS: 11042; A6253; A6402 ==

== ENCOUNTER → 2017-05-25 | Outpatient (CLI) | payer MEDICARE, BC | END | disposition home health service (06) | LOC: WOU 11:30 | PROVIDERS: ATTEND Podiatrist Foot & Ankle Surgery | DX: E11.621 Type 2 diabetes mellitus with foot ulcer (principal); L97.522 Non-pressure chronic ulcer of other part of left foot with fat layer exposed; L97.312 Non-pressure chronic ulcer of right ankle with fat layer exposed; E11.42 Type 2 diabetes mellitus with diabetic polyneuropathy; Z89.412 Acquired absence of left great toe; Z79.84 Long term (current) use of oral hypoglycemic drugs | CPT/HCPCS: 11042; A6253; A6402 ==

== ENCOUNTER 2017-05-28 10:42 | Outpatient (CLI) | payer MEDICARE, BC | END 2017-05-28 23:59 | disposition home health service (06) | LOC: WOU 10:42 | PROVIDERS: ATTEND Podiatrist Foot & Ankle Surgery | DX: E11.621 Type 2 diabetes mellitus with foot ulcer (principal); E11.622 Type 2 diabetes mellitus with other skin ulcer; L97.522 Non-pressure chronic ulcer of other part of left foot with fat layer exposed; L97.312 Non-pressure chronic ulcer of right ankle with fat layer exposed; E11.42 Type 2 diabetes mellitus with diabetic polyneuropathy; Z89.422 Acquired absence of other left toe(s); Z79.84 Long term (current) use of oral hypoglycemic drugs | CPT/HCPCS: 11042; A6253; A6402 ==

== ENCOUNTER 2017-06-01 09:47 | Outpatient (CLI) | payer MEDICARE, BC ==
[~2017-06-01 09:47] MED LIST changes: -HYDR-3326 PO; +HYDR-3974 PO
== END 2017-06-01 23:59 | disposition home health service (06) ==
LOC: WOU 09:47
PROVIDERS: ATTEND Podiatrist Foot & Ankle Surgery
DX: E11.621 Type 2 diabetes mellitus with foot ulcer (principal); L97.312 Non-pressure chronic ulcer of right ankle with fat layer exposed; E11.42 Type 2 diabetes mellitus with diabetic polyneuropathy; Z89.422 Acquired absence of other left toe(s); Z79.84 Long term (current) use of oral hypoglycemic drugs
CPT/HCPCS: A6402; G0463

== ENCOUNTER 2017-06-18 14:10 | Outpatient (CLI) | payer MEDICARE, BC | END 2017-06-18 23:59 | disposition home health service (06) | LOC: WOU 14:10 | PROVIDERS: ATTEND Podiatrist Foot & Ankle Surgery | DX: E11.621 Type 2 diabetes mellitus with foot ulcer (principal); L97.522 Non-pressure chronic ulcer of other part of left foot with fat layer exposed; E11.42 Type 2 diabetes mellitus with diabetic polyneuropathy; Z89.422 Acquired absence of other left toe(s); Z79.84 Long term (current) use of oral hypoglycemic drugs | CPT/HCPCS: 11042; A6402 ==

== ENCOUNTER 2017-06-22 11:14 | Outpatient (CLI) | payer MEDICARE, BC | END 2017-06-22 23:59 | disposition home health service (06) | LOC: WOU 11:14 | PROVIDERS: ATTEND Podiatrist Foot & Ankle Surgery | DX: E11.621 Type 2 diabetes mellitus with foot ulcer (principal); L97.522 Non-pressure chronic ulcer of other part of left foot with fat layer exposed; E11.42 Type 2 diabetes mellitus with diabetic polyneuropathy; Z89.422 Acquired absence of other left toe(s); Z79.84 Long term (current) use of oral hypoglycemic drugs | CPT/HCPCS: 11042; 82962-TC; A6402 ==

== ENCOUNTER 2017-06-25 13:00 | Outpatient (CLI) | payer MEDICARE, BC | END 2017-06-25 23:59 | disposition home health service (06) | LOC: WOU 13:00 | PROVIDERS: ATTEND Podiatrist Foot & Ankle Surgery | DX: E11.621 Type 2 diabetes mellitus with foot ulcer (principal); L97.522 Non-pressure chronic ulcer of other part of left foot with fat layer exposed; E11.42 Type 2 diabetes mellitus with diabetic polyneuropathy; Z89.422 Acquired absence of other left toe(s); Z83.3 Family history of diabetes mellitus; Z80.9 Family history of malignant neoplasm, unspecified; Z79.84 Long term (current) use of oral hypoglycemic drugs; Z79.899 Other long term (current) drug therapy | CPT/HCPCS: 11042; A6209; A6402 ==

== ENCOUNTER 2017-06-29 11:48 | Outpatient (CLI) | payer MEDICARE, BC | END 2017-06-29 23:59 | disposition home health service (06) | LOC: WOU 11:48 | PROVIDERS: ATTEND Podiatrist Foot & Ankle Surgery | DX: E11.621 Type 2 diabetes mellitus with foot ulcer (principal); L97.522 Non-pressure chronic ulcer of other part of left foot with fat layer exposed; E11.42 Type 2 diabetes mellitus with diabetic polyneuropathy; Z89.422 Acquired absence of other left toe(s); Z79.84 Long term (current) use of oral hypoglycemic drugs | CPT/HCPCS: 11042; A6209; A6253; A6402 ==

== ENCOUNTER 2017-07-02 12:06 | Outpatient (CLI) | payer MEDICARE, BC | END 2017-07-02 23:59 | disposition home health service (06) | LOC: WOU 12:06 | PROVIDERS: ATTEND Podiatrist Foot & Ankle Surgery | DX: E11.42 Type 2 diabetes mellitus with diabetic polyneuropathy (principal); Z86.31 Personal history of diabetic foot ulcer; Z89.422 Acquired absence of other left toe(s) | CPT/HCPCS: 29445; A6402 ==

== ENCOUNTER 2017-07-06 11:00 | Outpatient (CLI) | payer MEDICARE, BC | END 2017-07-06 23:59 | disposition home health service (06) | LOC: WOU 11:00 | PROVIDERS: ATTEND Podiatrist Foot & Ankle Surgery | DX: E11.42 Type 2 diabetes mellitus with diabetic polyneuropathy (principal); Z89.422 Acquired absence of other left toe(s) | CPT/HCPCS: 29445; A6402 ==

== ENCOUNTER 2017-07-13 11:35 | Outpatient (CLI) | payer MEDICARE, BC | END 2017-07-13 23:59 | disposition home health service (06) | LOC: WOU 11:35 | PROVIDERS: ATTEND Podiatrist Foot & Ankle Surgery | DX: E11.42 Type 2 diabetes mellitus with diabetic polyneuropathy (principal); Z89.422 Acquired absence of other left toe(s) | CPT/HCPCS: 29445; A6402 ==

== ENCOUNTER 2017-07-20 13:05 | Outpatient (CLI) | payer MEDICARE, BC | END 2017-07-20 23:59 | disposition home health service (06) | LOC: WOU 13:05 | PROVIDERS: ATTEND Podiatrist Foot & Ankle Surgery | DX: Z09 Encounter for follow-up examination after completed treatment for conditions other than malignant neoplasm (principal); Z89.422 Acquired absence of other left toe(s); Z89.432 Acquired absence of left foot; E11.42 Type 2 diabetes mellitus with diabetic polyneuropathy; Z86.31 Personal history of diabetic foot ulcer; Z89.411 Acquired absence of right great toe | CPT/HCPCS: 29445; A6402 ==

== ENCOUNTER 2017-07-27 11:17 | Outpatient (CLI) | payer MEDICARE, BC | END 2017-07-27 23:59 | disposition home health service (06) | LOC: WOU 11:17 | PROVIDERS: ATTEND Podiatrist Foot & Ankle Surgery | DX: E11.621 Type 2 diabetes mellitus with foot ulcer (principal); L97.521 Non-pressure chronic ulcer of other part of left foot limited to breakdown of skin; E11.622 Type 2 diabetes mellitus with other skin ulcer; L97.311 Non-pressure chronic ulcer of right ankle limited to breakdown of skin | CPT/HCPCS: A6402; G0463 ==

== ENCOUNTER 2017-08-03 11:05 | Outpatient (CLI) | payer MEDICARE, BC | END 2017-08-03 23:59 | disposition home health service (06) | LOC: WOU 11:05 | PROVIDERS: ATTEND Podiatrist Foot & Ankle Surgery | DX: E11.621 Type 2 diabetes mellitus with foot ulcer (principal); L97.522 Non-pressure chronic ulcer of other part of left foot with fat layer exposed; E11.42 Type 2 diabetes mellitus with diabetic polyneuropathy; Z89.422 Acquired absence of other left toe(s); Z79.84 Long term (current) use of oral hypoglycemic drugs; Z79.899 Other long term (current) drug therapy | CPT/HCPCS: 11042; 73630-TC; A6402 ==

== ENCOUNTER 2017-08-10 11:10 | Outpatient (CLI) | payer MEDICARE, BC | END 2017-08-10 23:59 | disposition home health service (06) | LOC: WOU 11:10 | PROVIDERS: ATTEND Podiatrist Foot & Ankle Surgery | DX: E11.621 Type 2 diabetes mellitus with foot ulcer (principal); L97.522 Non-pressure chronic ulcer of other part of left foot with fat layer exposed; E11.42 Type 2 diabetes mellitus with diabetic polyneuropathy; Z89.422 Acquired absence of other left toe(s); Z83.3 Family history of diabetes mellitus; Z79.84 Long term (current) use of oral hypoglycemic drugs | CPT/HCPCS: A6402; G0463 ==

== ENCOUNTER 2017-08-13 09:17 | Outpatient (CLI) | payer MEDICARE, BC | END 2017-08-13 23:59 | disposition home health service (06) | LOC: WOU 09:17 | PROVIDERS: ATTEND Podiatrist Foot & Ankle Surgery | DX: E11.42 Type 2 diabetes mellitus with diabetic polyneuropathy (principal); Z89.422 Acquired absence of other left toe(s); Z86.31 Personal history of diabetic foot ulcer; Z79.84 Long term (current) use of oral hypoglycemic drugs | CPT/HCPCS: A6402; G0463 ==

== ENCOUNTER 2017-08-20 11:00 | Outpatient (CLI) | payer MEDICARE, BC | END 2017-08-20 23:59 | disposition home or self-care (01) | LOC: WOU 11:00 | PROVIDERS: ATTEND Podiatrist Foot & Ankle Surgery | DX: E11.621 Type 2 diabetes mellitus with foot ulcer (principal); L97.529 Non-pressure chronic ulcer of other part of left foot with unspecified severity; E11.42 Type 2 diabetes mellitus with diabetic polyneuropathy; Z89.422 Acquired absence of other left toe(s); Z79.84 Long term (current) use of oral hypoglycemic drugs | CPT/HCPCS: 11042; A6209; A6402 ==

== ENCOUNTER 2017-09-03 13:33 | Outpatient (CLI) | payer MEDICARE, BC | END 2017-09-03 23:59 | disposition home health service (06) | LOC: WOU 13:33 | PROVIDERS: ATTEND Podiatrist Foot & Ankle Surgery | DX: E11.621 Type 2 diabetes mellitus with foot ulcer (principal); L97.429 Non-pressure chronic ulcer of left heel and midfoot with unspecified severity; E11.42 Type 2 diabetes mellitus with diabetic polyneuropathy; Z89.422 Acquired absence of other left toe(s); Z79.84 Long term (current) use of oral hypoglycemic drugs; Z79.899 Other long term (current) drug therapy | CPT/HCPCS: 11042; A6402 ==

== ENCOUNTER 2017-09-14 12:43 | Outpatient (CLI) | payer MEDICARE, BC | END 2017-09-14 23:59 | disposition home health service (06) | LOC: WOU 12:43 | PROVIDERS: ATTEND Podiatrist Foot & Ankle Surgery | DX: E11.621 Type 2 diabetes mellitus with foot ulcer (principal); L97.522 Non-pressure chronic ulcer of other part of left foot with fat layer exposed; S91.312A Laceration without foreign body, left foot, initial encounter; W45.8XXA Other foreign body or object entering through skin, initial encounter; Y92.89 Other specified places as the place of occurrence of the external cause; Z89.422 Acquired absence of other left toe(s); E11.42 Type 2 diabetes mellitus with diabetic polyneuropathy; Z79.84 Long term (current) use of oral hypoglycemic drugs | CPT/HCPCS: 11042; A6402 ==

== ENCOUNTER 2017-09-24 11:13 | Outpatient (CLI) | payer MEDICARE, BC | END 2017-09-24 23:59 | disposition home health service (06) | LOC: WOU 11:13 | PROVIDERS: ATTEND Podiatrist Foot & Ankle Surgery | DX: E11.621 Type 2 diabetes mellitus with foot ulcer (principal); L97.522 Non-pressure chronic ulcer of other part of left foot with fat layer exposed; S91.312D Laceration without foreign body, left foot, subsequent encounter; X58.XXXD Exposure to other specified factors, subsequent encounter; E11.42 Type 2 diabetes mellitus with diabetic polyneuropathy; Z89.432 Acquired absence of left foot; Z79.84 Long term (current) use of oral hypoglycemic drugs | CPT/HCPCS: 11042; A6402 ==

== ENCOUNTER 2017-10-05 10:24 | Outpatient (CLI) | payer MEDICARE, BC | END 2017-10-05 23:59 | disposition home health service (06) | LOC: WOU 10:24 | PROVIDERS: ATTEND Podiatrist Foot & Ankle Surgery | DX: E11.621 Type 2 diabetes mellitus with foot ulcer (principal); L97.522 Non-pressure chronic ulcer of other part of left foot with fat layer exposed; L97.511 Non-pressure chronic ulcer of other part of right foot limited to breakdown of skin; Z79.84 Long term (current) use of oral hypoglycemic drugs; E11.42 Type 2 diabetes mellitus with diabetic polyneuropathy; Z89.422 Acquired absence of other left toe(s); S91.312D Laceration without foreign body, left foot, subsequent encounter; X58.XXXD Exposure to other specified factors, subsequent encounter | CPT/HCPCS: 11042; A6402 ==

== ENCOUNTER 2017-10-08 08:00 | Outpatient (CLI) | payer MEDICARE, BC | END 2017-10-08 23:59 | disposition home health service (06) | LOC: WOU 08:00 | PROVIDERS: ATTEND Podiatrist Foot & Ankle Surgery | DX: E11.621 Type 2 diabetes mellitus with foot ulcer (principal); L97.522 Non-pressure chronic ulcer of other part of left foot with fat layer exposed; L97.511 Non-pressure chronic ulcer of other part of right foot limited to breakdown of skin; Z89.422 Acquired absence of other left toe(s); E11.42 Type 2 diabetes mellitus with diabetic polyneuropathy; Z89.432 Acquired absence of left foot; Z79.84 Long term (current) use of oral hypoglycemic drugs | CPT/HCPCS: 11042; 82962-TC; A6402; A6452 ==

== ENCOUNTER 2017-10-12 12:44 | Outpatient (CLI) | payer MEDICARE, BC | END 2017-10-12 23:59 | disposition home health service (06) | LOC: WOU 12:44 | PROVIDERS: ATTEND Podiatrist Foot & Ankle Surgery | DX: E11.621 Type 2 diabetes mellitus with foot ulcer (principal); L97.522 Non-pressure chronic ulcer of other part of left foot with fat layer exposed; E11.42 Type 2 diabetes mellitus with diabetic polyneuropathy; Z89.412 Acquired absence of left great toe; Z79.84 Long term (current) use of oral hypoglycemic drugs | CPT/HCPCS: 11042; A6402; Z7610 ==

== ENCOUNTER 2017-10-19 11:00 | Outpatient (CLI) | payer MEDICARE, BC | END 2017-10-19 23:59 | disposition home health service (06) | LOC: WOU 11:00 | PROVIDERS: ATTEND Podiatrist Foot & Ankle Surgery | DX: E11.621 Type 2 diabetes mellitus with foot ulcer (principal); L97.522 Non-pressure chronic ulcer of other part of left foot with fat layer exposed; E11.42 Type 2 diabetes mellitus with diabetic polyneuropathy; Z89.422 Acquired absence of other left toe(s); Z79.84 Long term (current) use of oral hypoglycemic drugs | CPT/HCPCS: 11042; A6402; Z7610 ==

== ENCOUNTER 2017-10-26 09:59 | Outpatient (CLI) | payer MEDICARE, BC | END 2017-10-26 23:59 | disposition home health service (06) | LOC: WOU 09:59 | PROVIDERS: ATTEND Podiatrist Foot & Ankle Surgery | DX: E11.621 Type 2 diabetes mellitus with foot ulcer (principal); L97.522 Non-pressure chronic ulcer of other part of left foot with fat layer exposed; E11.42 Type 2 diabetes mellitus with diabetic polyneuropathy; Z89.422 Acquired absence of other left toe(s); Z79.84 Long term (current) use of oral hypoglycemic drugs | CPT/HCPCS: 11042; A6209; A6402 ==

== ENCOUNTER 2017-11-16 10:21 | Outpatient (CLI) | payer MEDICARE, BC | END 2017-11-16 23:59 | disposition home health service (06) | LOC: WOU 10:21 | PROVIDERS: ATTEND Podiatrist Foot & Ankle Surgery | DX: E11.621 Type 2 diabetes mellitus with foot ulcer (principal); L97.522 Non-pressure chronic ulcer of other part of left foot with fat layer exposed; E11.42 Type 2 diabetes mellitus with diabetic polyneuropathy; Z79.84 Long term (current) use of oral hypoglycemic drugs; Z89.422 Acquired absence of other left toe(s) | CPT/HCPCS: 11042; A6209; A6402; Z7610 ==

== ENCOUNTER 2017-11-23 13:03 | Outpatient (CLI) | payer MEDICARE, BC | END 2017-11-23 23:59 | disposition home health service (06) | LOC: WOU 13:03 | PROVIDERS: ATTEND Podiatrist Foot & Ankle Surgery | DX: E11.621 Type 2 diabetes mellitus with foot ulcer (principal); L97.522 Non-pressure chronic ulcer of other part of left foot with fat layer exposed; E11.42 Type 2 diabetes mellitus with diabetic polyneuropathy; Z79.84 Long term (current) use of oral hypoglycemic drugs; Z89.422 Acquired absence of other left toe(s) | CPT/HCPCS: 11042; A6209; A6402; Z7610 ==

== ENCOUNTER 2017-11-30 10:40 | Outpatient (CLI) | payer MEDICARE, BC | END 2017-11-30 23:59 | disposition home health service (06) | LOC: WOU 10:40 | PROVIDERS: ATTEND Podiatrist Foot & Ankle Surgery | DX: E11.621 Type 2 diabetes mellitus with foot ulcer (principal); L97.522 Non-pressure chronic ulcer of other part of left foot with fat layer exposed; E11.42 Type 2 diabetes mellitus with diabetic polyneuropathy; Z79.84 Long term (current) use of oral hypoglycemic drugs; Z89.422 Acquired absence of other left toe(s) | CPT/HCPCS: 11042; A6209; A6402; Z7610 ×3 ==

== ENCOUNTER 2017-12-07 12:42 | Outpatient (CLI) | payer MEDICARE, BC | END 2017-12-07 23:59 | disposition home health service (06) | LOC: WOU 12:42 | PROVIDERS: ATTEND Podiatrist Foot & Ankle Surgery | DX: E11.621 Type 2 diabetes mellitus with foot ulcer (principal); L97.522 Non-pressure chronic ulcer of other part of left foot with fat layer exposed; E11.42 Type 2 diabetes mellitus with diabetic polyneuropathy; Z79.84 Long term (current) use of oral hypoglycemic drugs; Z89.422 Acquired absence of other left toe(s) | CPT/HCPCS: 11042; A6209; A6402; Z7610 ==

== ENCOUNTER 2017-12-14 12:00 | Outpatient (CLI) | payer MEDICARE, BC | END 2017-12-14 23:59 | disposition home health service (06) | LOC: WOU 12:00 | PROVIDERS: ATTEND Podiatrist Foot & Ankle Surgery | DX: E11.621 Type 2 diabetes mellitus with foot ulcer (principal); L97.522 Non-pressure chronic ulcer of other part of left foot with fat layer exposed; E11.42 Type 2 diabetes mellitus with diabetic polyneuropathy; Z79.84 Long term (current) use of oral hypoglycemic drugs; Z89.422 Acquired absence of other left toe(s) | CPT/HCPCS: 11042; A6209; A6402; Z7610 ==

== ENCOUNTER 2017-12-31 11:20 | Outpatient (CLI) | payer MEDICARE, BC | END 2017-12-31 23:59 | disposition home health service (06) | LOC: WOU 11:20 | PROVIDERS: ATTEND Podiatrist Foot & Ankle Surgery | DX: E11.621 Type 2 diabetes mellitus with foot ulcer (principal); L97.522 Non-pressure chronic ulcer of other part of left foot with fat layer exposed; E11.42 Type 2 diabetes mellitus with diabetic polyneuropathy; Z89.422 Acquired absence of other left toe(s); Z79.84 Long term (current) use of oral hypoglycemic drugs | CPT/HCPCS: 11042; A6209; A6402; Z7610 ==

== ENCOUNTER 2018-01-11 13:00 | Outpatient (CLI) | payer MEDICARE, BC | END 2018-01-11 23:59 | disposition home health service (06) | LOC: WOU 13:00 | PROVIDERS: ATTEND Podiatrist Foot & Ankle Surgery | DX: E11.621 Type 2 diabetes mellitus with foot ulcer (principal); L97.522 Non-pressure chronic ulcer of other part of left foot with fat layer exposed; E11.42 Type 2 diabetes mellitus with diabetic polyneuropathy; Z89.412 Acquired absence of left great toe; Z79.84 Long term (current) use of oral hypoglycemic drugs | CPT/HCPCS: 11042; A6209; A6402; Z7610 ==

== ENCOUNTER 2018-01-18 11:30 | Outpatient (CLI) | payer MEDICARE, BC | END 2018-01-18 23:59 | disposition home health service (06) | LOC: WOU 11:30 | PROVIDERS: ATTEND Podiatrist Foot & Ankle Surgery | DX: E11.621 Type 2 diabetes mellitus with foot ulcer (principal); L97.522 Non-pressure chronic ulcer of other part of left foot with fat layer exposed; E11.42 Type 2 diabetes mellitus with diabetic polyneuropathy; Z89.412 Acquired absence of left great toe; Z83.3 Family history of diabetes mellitus; Z80.9 Family history of malignant neoplasm, unspecified; Z79.84 Long term (current) use of oral hypoglycemic drugs | CPT/HCPCS: 11042; A6209; A6402; Z7610 ==

== ENCOUNTER 2018-01-25 13:55 | Outpatient (CLI) | payer MEDICARE, BC | END 2018-01-25 23:59 | disposition home health service (06) | LOC: WOU 13:55 | PROVIDERS: ATTEND Podiatrist Foot & Ankle Surgery | DX: E11.621 Type 2 diabetes mellitus with foot ulcer (principal); L97.522 Non-pressure chronic ulcer of other part of left foot with fat layer exposed; E11.42 Type 2 diabetes mellitus with diabetic polyneuropathy; Z79.84 Long term (current) use of oral hypoglycemic drugs; Z89.422 Acquired absence of other left toe(s) | CPT/HCPCS: 11042; A6209; A6402; Z7610 ==

== ENCOUNTER 2018-01-28 13:40 | Outpatient (CLI) | payer MEDICARE, BC | END 2018-01-28 23:59 | disposition home health service (06) | LOC: WOU 13:40 | PROVIDERS: ATTEND Podiatrist Foot & Ankle Surgery | DX: E11.621 Type 2 diabetes mellitus with foot ulcer (principal); L97.522 Non-pressure chronic ulcer of other part of left foot with fat layer exposed; E11.42 Type 2 diabetes mellitus with diabetic polyneuropathy; Z89.422 Acquired absence of other left toe(s) | CPT/HCPCS: 11042; A6209; A6402; Z7610; J7030 ==

== ENCOUNTER 2018-02-01 11:40 | Outpatient (CLI) | payer MEDICARE, BC | END 2018-02-01 23:59 | disposition home health service (06) | LOC: WOU 11:40 | PROVIDERS: ATTEND Podiatrist Foot & Ankle Surgery | DX: E11.621 Type 2 diabetes mellitus with foot ulcer (principal); L97.522 Non-pressure chronic ulcer of other part of left foot with fat layer exposed; E11.42 Type 2 diabetes mellitus with diabetic polyneuropathy; Z79.84 Long term (current) use of oral hypoglycemic drugs; Z89.422 Acquired absence of other left toe(s) | CPT/HCPCS: 11042; A6209; A6402; Z7610 ==

== ENCOUNTER 2018-02-08 11:25 | Outpatient (CLI) | payer MEDICARE, BC | END 2018-02-08 23:59 | disposition home health service (06) | LOC: WOU 11:25 | PROVIDERS: ATTEND Podiatrist Foot & Ankle Surgery | DX: E11.621 Type 2 diabetes mellitus with foot ulcer (principal); L97.522 Non-pressure chronic ulcer of other part of left foot with fat layer exposed; E11.42 Type 2 diabetes mellitus with diabetic polyneuropathy; Z79.84 Long term (current) use of oral hypoglycemic drugs; Z89.432 Acquired absence of left foot | CPT/HCPCS: 11042; A6209; A6402; Z7610 ==

== ENCOUNTER 2018-02-15 12:42 | Outpatient (CLI) | payer MEDICARE, BC | END 2018-02-15 23:59 | disposition home health service (06) | LOC: WOU 12:42 | PROVIDERS: ATTEND Podiatrist Foot & Ankle Surgery | DX: E11.621 Type 2 diabetes mellitus with foot ulcer (principal); L97.521 Non-pressure chronic ulcer of other part of left foot limited to breakdown of skin; E11.42 Type 2 diabetes mellitus with diabetic polyneuropathy; Z79.84 Long term (current) use of oral hypoglycemic drugs; Z89.432 Acquired absence of left foot | CPT/HCPCS: A6209; A6402; Z7610 ==

== ENCOUNTER 2018-04-12 11:45 | Outpatient (CLI) | payer MEDICARE, BC | END 2018-04-12 23:59 | disposition home health service (06) | LOC: WOU 11:45 | PROVIDERS: ATTEND Podiatrist Foot & Ankle Surgery | DX: E11.621 Type 2 diabetes mellitus with foot ulcer (principal); L97.522 Non-pressure chronic ulcer of other part of left foot with fat layer exposed; E11.42 Type 2 diabetes mellitus with diabetic polyneuropathy; Z79.84 Long term (current) use of oral hypoglycemic drugs; Z89.432 Acquired absence of left foot | CPT/HCPCS: 11042; A6402; Z7610 ==

== ENCOUNTER 2018-04-26 10:30 | Outpatient (CLI) | payer MEDICARE, BC | END 2018-04-26 23:59 | disposition home health service (06) | LOC: WOU 10:30 | PROVIDERS: ATTEND Podiatrist Foot & Ankle Surgery | DX: E11.621 Type 2 diabetes mellitus with foot ulcer (principal); L97.528 Non-pressure chronic ulcer of other part of left foot with other specified severity; E11.42 Type 2 diabetes mellitus with diabetic polyneuropathy; Z79.84 Long term (current) use of oral hypoglycemic drugs; Z89.432 Acquired absence of left foot | CPT/HCPCS: A6402; G0463 ==

== ENCOUNTER 2018-05-03 11:50 | Outpatient (CLI) | payer MEDICARE, BC | END 2018-05-03 23:59 | disposition home health service (06) | LOC: WOU 11:50 | PROVIDERS: ATTEND Podiatrist Foot & Ankle Surgery | DX: E11.42 Type 2 diabetes mellitus with diabetic polyneuropathy (principal); Z79.84 Long term (current) use of oral hypoglycemic drugs; M21.962 Unspecified acquired deformity of left lower leg; Z89.432 Acquired absence of left foot | CPT/HCPCS: A6402; G0463 ==

== ENCOUNTER 2018-05-17 12:35 | Outpatient (CLI) | payer MEDICARE, BC | END 2018-05-17 23:59 | disposition home health service (06) | LOC: WOU 12:35 | PROVIDERS: ATTEND Podiatrist Foot & Ankle Surgery | DX: M21.962 Unspecified acquired deformity of left lower leg (principal); E11.42 Type 2 diabetes mellitus with diabetic polyneuropathy; Z89.432 Acquired absence of left foot; Z79.84 Long term (current) use of oral hypoglycemic drugs | CPT/HCPCS: G0463 ==

== ENCOUNTER 2018-06-07 10:25 | Outpatient (CLI) | payer MEDICARE, BC | END 2018-06-07 23:59 | disposition home health service (06) | LOC: WOU 10:25 | PROVIDERS: ATTEND Podiatrist Foot & Ankle Surgery | DX: E11.621 Type 2 diabetes mellitus with foot ulcer (principal); L97.522 Non-pressure chronic ulcer of other part of left foot with fat layer exposed; E11.42 Type 2 diabetes mellitus with diabetic polyneuropathy; Z79.84 Long term (current) use of oral hypoglycemic drugs; M21.962 Unspecified acquired deformity of left lower leg; Z89.432 Acquired absence of left foot | CPT/HCPCS: 11042; A6402 ==

== ENCOUNTER 2018-06-14 12:20 | Outpatient (CLI) | payer MEDICARE, BC | END 2018-06-14 23:59 | disposition home health service (06) | LOC: WOU 12:20 | PROVIDERS: ATTEND Podiatrist Foot & Ankle Surgery | DX: E11.621 Type 2 diabetes mellitus with foot ulcer (principal); L97.522 Non-pressure chronic ulcer of other part of left foot with fat layer exposed; M21.962 Unspecified acquired deformity of left lower leg; E11.42 Type 2 diabetes mellitus with diabetic polyneuropathy; Z79.84 Long term (current) use of oral hypoglycemic drugs; Z89.432 Acquired absence of left foot | CPT/HCPCS: 11042; A6402; G0463 ==

== ENCOUNTER 2018-06-21 11:20 | Outpatient (CLI) | payer MEDICARE, BC | END 2018-06-21 23:59 | disposition home health service (06) | LOC: WOU 11:20 | PROVIDERS: ATTEND Podiatrist Foot & Ankle Surgery | DX: E11.621 Type 2 diabetes mellitus with foot ulcer (principal); L97.522 Non-pressure chronic ulcer of other part of left foot with fat layer exposed; E11.42 Type 2 diabetes mellitus with diabetic polyneuropathy; Z79.84 Long term (current) use of oral hypoglycemic drugs; M21.962 Unspecified acquired deformity of left lower leg; Z89.432 Acquired absence of left foot | CPT/HCPCS: 11042; A6209; A6402 ==

== ENCOUNTER 2018-06-24 08:30 | Outpatient (CLI) | payer MEDICARE, BC | END 2018-06-24 23:59 | disposition home health service (06) | LOC: WOU 08:30 | PROVIDERS: ATTEND Podiatrist Foot & Ankle Surgery | DX: E11.621 Type 2 diabetes mellitus with foot ulcer (principal); L97.522 Non-pressure chronic ulcer of other part of left foot with fat layer exposed; E11.42 Type 2 diabetes mellitus with diabetic polyneuropathy; Z89.432 Acquired absence of left foot; Z79.84 Long term (current) use of oral hypoglycemic drugs | CPT/HCPCS: A6209; A6402; G0463 ==

== ENCOUNTER 2018-07-05 11:20 | Outpatient (CLI) | payer MEDICARE, BC | END 2018-07-05 23:59 | disposition home health service (06) | LOC: WOU 11:20 | PROVIDERS: ATTEND Podiatrist Foot & Ankle Surgery | DX: E11.621 Type 2 diabetes mellitus with foot ulcer (principal); L97.523 Non-pressure chronic ulcer of other part of left foot with necrosis of muscle; S91.011A Laceration without foreign body, right ankle, initial encounter; X58.XXXA Exposure to other specified factors, initial encounter; Y92.89 Other specified places as the place of occurrence of the external cause; M21.962 Unspecified acquired deformity of left lower leg; E11.42 Type 2 diabetes mellitus with diabetic polyneuropathy; Z89.432 Acquired absence of left foot; Z79.84 Long term (current) use of oral hypoglycemic drugs | CPT/HCPCS: 11043; A6209; A6402 ==

== ENCOUNTER 2018-07-12 12:15 | Outpatient (CLI) | payer MEDICARE, BC | END 2018-07-12 23:59 | disposition home health service (06) | LOC: WOU 12:15 | PROVIDERS: ATTEND Podiatrist Foot & Ankle Surgery | DX: E11.621 Type 2 diabetes mellitus with foot ulcer (principal); L97.522 Non-pressure chronic ulcer of other part of left foot with fat layer exposed; S91.011D Laceration without foreign body, right ankle, subsequent encounter; X58.XXXD Exposure to other specified factors, subsequent encounter; E11.42 Type 2 diabetes mellitus with diabetic polyneuropathy; Z79.84 Long term (current) use of oral hypoglycemic drugs; Z89.432 Acquired absence of left foot | CPT/HCPCS: 11042; A6402 ==

== ENCOUNTER 2018-07-22 10:00 | Outpatient (CLI) | payer MEDICARE, BC | END 2018-07-22 23:59 | disposition home health service (06) | LOC: WOU 10:00 | PROVIDERS: ATTEND Podiatrist Foot & Ankle Surgery | DX: E11.621 Type 2 diabetes mellitus with foot ulcer (principal); L97.522 Non-pressure chronic ulcer of other part of left foot with fat layer exposed; E11.42 Type 2 diabetes mellitus with diabetic polyneuropathy; Z89.422 Acquired absence of other left toe(s); S91.011D Laceration without foreign body, right ankle, subsequent encounter; X58.XXXD Exposure to other specified factors, subsequent encounter; Z79.84 Long term (current) use of oral hypoglycemic drugs | CPT/HCPCS: 11042; A6209; A6402 ==

== ENCOUNTER 2018-08-02 10:00 | Outpatient (CLI) | payer MEDICARE, BC | END 2018-08-02 23:59 | disposition home health service (06) | LOC: WOU 10:00 | PROVIDERS: ATTEND Podiatrist Foot & Ankle Surgery | DX: E11.621 Type 2 diabetes mellitus with foot ulcer (principal); L97.522 Non-pressure chronic ulcer of other part of left foot with fat layer exposed; E11.42 Type 2 diabetes mellitus with diabetic polyneuropathy; Z79.84 Long term (current) use of oral hypoglycemic drugs; Z89.432 Acquired absence of left foot | CPT/HCPCS: 11042; A6209; A6402 ==

== ENCOUNTER 2018-08-09 10:55 | Outpatient (CLI) | payer MEDICARE, BC | END 2018-08-09 23:59 | disposition home health service (06) | LOC: WOU 10:55 | PROVIDERS: ATTEND Podiatrist Foot & Ankle Surgery | DX: E11.621 Type 2 diabetes mellitus with foot ulcer (principal); L97.522 Non-pressure chronic ulcer of other part of left foot with fat layer exposed; E11.42 Type 2 diabetes mellitus with diabetic polyneuropathy; Z79.84 Long term (current) use of oral hypoglycemic drugs; M21.962 Unspecified acquired deformity of left lower leg; Z89.432 Acquired absence of left foot | CPT/HCPCS: 11042; A6209; A6402 ==

== ENCOUNTER 2018-08-23 14:00 | Outpatient (CLI) | payer MEDICARE, BC | END 2018-08-23 23:59 | disposition home health service (06) | LOC: WOU 14:00 | PROVIDERS: ATTEND Podiatrist Foot & Ankle Surgery | DX: E11.621 Type 2 diabetes mellitus with foot ulcer (principal); L97.522 Non-pressure chronic ulcer of other part of left foot with fat layer exposed; E11.42 Type 2 diabetes mellitus with diabetic polyneuropathy; Z79.84 Long term (current) use of oral hypoglycemic drugs; Z89.432 Acquired absence of left foot | CPT/HCPCS: 11042; A6402 ==

== ENCOUNTER 2018-08-26 12:25 | Outpatient (CLI) | payer MEDICARE, BC | END 2018-08-26 23:59 | disposition home health service (06) | LOC: WOU 12:25 | PROVIDERS: ATTEND Podiatrist Foot & Ankle Surgery | DX: E11.621 Type 2 diabetes mellitus with foot ulcer (principal); L97.522 Non-pressure chronic ulcer of other part of left foot with fat layer exposed; E11.42 Type 2 diabetes mellitus with diabetic polyneuropathy; Z89.422 Acquired absence of other left toe(s); Z79.84 Long term (current) use of oral hypoglycemic drugs | CPT/HCPCS: 11042; A6209; A6402 ==

== ENCOUNTER 2018-09-02 09:45 | Outpatient (CLI) | payer MEDICARE, BC | END 2018-09-02 23:59 | disposition home health service (06) | LOC: WOU 09:45 | PROVIDERS: ATTEND Podiatrist Foot & Ankle Surgery | DX: E11.621 Type 2 diabetes mellitus with foot ulcer (principal); L97.522 Non-pressure chronic ulcer of other part of left foot with fat layer exposed; M21.962 Unspecified acquired deformity of left lower leg; E11.42 Type 2 diabetes mellitus with diabetic polyneuropathy; Z89.422 Acquired absence of other left toe(s) | CPT/HCPCS: 11042; 82962; A6209; A6402 ==

== ENCOUNTER 2018-09-09 11:15 | Outpatient (CLI) | payer MEDICARE, BC | END 2018-09-09 23:59 | disposition home health service (06) | LOC: WOU 11:15 | PROVIDERS: ATTEND Podiatrist Foot & Ankle Surgery | DX: E11.621 Type 2 diabetes mellitus with foot ulcer (principal); L97.522 Non-pressure chronic ulcer of other part of left foot with fat layer exposed; E11.42 Type 2 diabetes mellitus with diabetic polyneuropathy; Z89.422 Acquired absence of other left toe(s); Z79.84 Long term (current) use of oral hypoglycemic drugs | CPT/HCPCS: 11042; A6209; A6402 ==

== ENCOUNTER 2018-09-16 09:35 | Outpatient (CLI) | payer MEDICARE, BC | END 2018-09-16 23:59 | disposition home health service (06) | LOC: WOU 09:35 | PROVIDERS: ATTEND Podiatrist Foot & Ankle Surgery | DX: E11.621 Type 2 diabetes mellitus with foot ulcer (principal); L97.522 Non-pressure chronic ulcer of other part of left foot with fat layer exposed; E11.42 Type 2 diabetes mellitus with diabetic polyneuropathy; Z89.422 Acquired absence of other left toe(s); Z79.84 Long term (current) use of oral hypoglycemic drugs | CPT/HCPCS: 11042; A6209; A6402 ==

== ENCOUNTER 2018-11-04 11:00 | Outpatient (CLI) | payer MEDICARE, BC | END 2018-11-04 23:59 | disposition home or self-care (01) | LOC: WOU 11:00 | PROVIDERS: ATTEND Podiatrist Foot & Ankle Surgery | DX: S91.012A Laceration without foreign body, left ankle, initial encounter (principal); W06.XXXA Fall from bed, initial encounter; Y92.013 Bedroom of single-family (private) house as the place of occurrence of the external cause; I69.354 Hemiplegia and hemiparesis following cerebral infarction affecting left non-dominant side; E11.42 Type 2 diabetes mellitus with diabetic polyneuropathy; Z89.412 Acquired absence of left great toe; Z79.84 Long term (current) use of oral hypoglycemic drugs; Z79.899 Other long term (current) drug therapy | CPT/HCPCS: 11042; A6402 ==

== ENCOUNTER 2018-12-06 11:45 | Outpatient (CLI) | payer MEDICARE, BC | END 2018-12-06 23:59 | disposition home or self-care (01) | LOC: WOU 11:45 | PROVIDERS: ATTEND Podiatrist Foot & Ankle Surgery | DX: L30.9 Dermatitis, unspecified (principal); E11.42 Type 2 diabetes mellitus with diabetic polyneuropathy; Z79.84 Long term (current) use of oral hypoglycemic drugs; I69.354 Hemiplegia and hemiparesis following cerebral infarction affecting left non-dominant side; M21.372 Foot drop, left foot; S61.412A Laceration without foreign body of left hand, initial encounter; X58.XXXA Exposure to other specified factors, initial encounter; Y92.89 Other specified places as the place of occurrence of the external cause; Z79.82 Long term (current) use of aspirin; Z89.432 Acquired absence of left foot | CPT/HCPCS: 82962; G0463 ==

== ENCOUNTER 2023-12-21 10:29 | Outpatient (CLI) | payer MEDICARE, BC | END 2023-12-21 23:59 | disposition home health service (06) | LOC: WOU 10:29 | PROVIDERS: ATTEND Student in an Organized Health Care Education/Training Program | DX: E11.621 Type 2 diabetes mellitus with foot ulcer (principal); L97.522 Non-pressure chronic ulcer of other part of left foot with fat layer exposed; E11.42 Type 2 diabetes mellitus with diabetic polyneuropathy; I69.354 Hemiplegia and hemiparesis following cerebral infarction affecting left non-dominant side; Z89.432 Acquired absence of left foot; Z79.84 Long term (current) use of oral hypoglycemic drugs; Z79.82 Long term (current) use of aspirin | CPT/HCPCS: 11042 ==